=== PATIENT | female | born 1950 | race Caucasian/White ===

== ENCOUNTER 2017-01-10 08:41 | Day surgery (SDC) | payer OTHER ==
[~2017-01-10] VITALS: Ht 157.5 cm; Wt 59.1 kg
[2017-01-10] VITALS (8 sets, daily range): BP systolic 132–183; BP diastolic 62–87; PULSE 68–86; RESP 16–20; TEMP 98.4; O2SAT 92–95
[~2017-01-10 08:41] MED LIST: FLUN1AER INH; GLIP1TAB49 PO; METF500T PO; PANT20TA2 PO; VITA100036 PO
[2017-01-10] MEDS ORDERED: SODIUM CHLOR 0.9% 1000 ML INJ 1,000 ML IV SCH (09:15)
[2017-01-10] MEDS ORDERED: GLIP1TAB51 PO (09:19)
[2017-01-10] MEDS ORDERED: LANTUS2P SQ (09:19)
[2017-01-10 09:51] LABS: AUTOMATED NEUTROPHIL # 8.9 TH/MM3 (1.8-7.7); BASOPHIL # 0.1 TH/MM3 (0-0.2); BASOPHIL % 0.5 % (0.0-2.0); EOSINOPHIL # 0.3 TH/MM3 (0-0.4); EOSINOPHIL % 2.8 % (0.0-4.0); HEMATOCRIT 39.2 % (35.0-46.0); HEMO FLAGS DIFF FINAL; LYMPH % 14.3 % (9.0-44.0); LYMPHOCYTE # 1.7 TH/MM3 (1.0-4.8); MEAN CORPUSCULAR HEMOGLOBIN 25.9 PG (27.0-34.0); MEAN CORPUSCULAR HGB CONC 32.8 % (32.0-36.0); MONO % 7.6 % (0.0-8.0); NEUT % 74.8 % (16.0-70.0); PLATELET COUNT 286 TH/MM3 (150-450); RED BLOOD COUNT 4.96 MIL/MM3 (4.00-5.30); RED CELL DISTRIBUTION WIDTH 14.1 % (11.6-17.2); WHITE BLOOD COUNT 11.9 TH/MM3 (4.0-11.0)
[2017-01-10 09:59] LABS: APTT (PATIENT) 26.5 SEC (24.3-30.1); PROTHROMBIN TIME - PATIENT 10.7 SEC (9.8-11.6)
[2017-01-10] MEDS ORDERED: LIDOCAINE HCL 1% 20 ML VIAL ONE (11:39)
[2017-01-10] MEDS ORDERED: MIDAZOLAM HCL 2 MG/2 ML VIAL ONE ×2 (12:00→12:12)
[2017-01-10] MEDS ORDERED: oxyCODONE/ACETAMINOPHEN 5 MG/325 MG TAB PO PRN ×3 (12:45→13:45)
--- NOTE | 2017-01-10 12:46 | PD.RAD ---
Post CT Procedure Prog Note Pre Procedure Diagnosis: (1) Renal carcinoma Post Procedure Diagnosis: (1) Renal carcinoma Procedure Date: Jan 10, 2017 Supervising Radiologist: Bennie Gutiérrez Estimated blood loss: none Anesthesia: Local, Conscious Sedation Plan of Activity Patient to Unit: [facility] Patient Condition: Good See PACS Report for procedural detail/treatment Biopsy Imaging Guidance: CT Side: Left Biopsy Procedure: Lung Specimen: Core Biopsy Bennie Gutiérrez MD Jan 10, 2017 12:46
--- NOTE | 2017-01-10 13:21 | RADRPT ---
EXAM DATE/TIME: 01/10/2017 12:05 CORRECTION Corrected on: January 11, 2017; CORRECTED HEADER TO LEFT LUNG FROM RIGHT LUNG [facility] COMPARISON: No previous studies available for comparison. INDICATIONS : Lung lesions SEDATION TIME: 25 minutes BIOPSY SITE: Left Lung anterior sulcus MEDICATION(S): 1.) 3 mg midazolam (Versed) IV 2.) 150 mcg fentanyl (Sublimaze) IV DEVICE(S): 1.) 16 gauge Temno core biopsy needle MEDICAL HISTORY : Renal cell carcinoma. SURGICAL HISTORY : Appendectomy. Nephrectomy, left. Cholecystectomy. HYSTERECTOMY ENCOUNTER: Initial ACUITY: 1 day PAIN SCORE: 0/10 LOCATION: Left lUNG A total of one core specimen(s) were obtained and sent to the laboratory for pathologic evaluation. PROCEDURE: 1. CT guided lung LEFT biopsy. Prior to the procedure informed consent was obtained. Any appropriate prior imaging studies were rev iewed. Using automated exposure control and adjustment of the mA and/or kV according to patient size, radiation dose was kept as low as reasonably achievable to obtain optimal diagnostic quality images. DICOM format image data is available electronically for review and comparison. The site was prepped in a sterile fashion. Full sterile technique was used, including cap, mask, radha rile gloves and gown and a large sterile sheet. Hand hygiene and 2% chlorhexidine and/or betadine/al cohol prep was utilized per protocol for cutaneous antisepsis. The skin and subcutaneous tissues wer e infiltrated with local anesthetic solution. With CT guidance the previously identified target was localized. Biopsy was performed using the presc ribed needle as above. Adequate hemostasis was obtained with compression at the puncture site. Follow-up CT scan reveals no pneumothorax. Conscious sedation was performed with the prescribed dosages and duration as above in the presence of an independent trained radiology nurse to assist in the monitoring of the patient. EKG and oximetry remained stable throughout the procedure. The patient tolerated the procedure well and there were no complications. The patient was sent to Radiology Outpatient Unit in stable condition. CONCLUSION: Uncomplicated CT guided biopsy. Bennie Gutiérrez MD on January 10, 2017 at 13:18 Board Certified Radiologist. This report was verified electronically.
--- NOTE | 2017-01-10 13:21 | RADRPT ---
EXAM DATE/TIME: 01/10/2017 13:05 [facility] COMPARISON: No previous studies available for comparison. INDICATIONS : Post right lung biopsy. MEDICAL HISTORY : Diabetes mellitus type II. Renal cell carcinoma. SURGICAL HISTORY : Appendectomy. Cholecystectomy. Hysterectomy. left nephrectomy ENCOUNTER: Subsequent ACUITY: 1 day PAIN SCORE: 0/10 LOCATION: Bilateral chest FINDINGS: Multiple bilateral pulmonary parenchymal nodules identified. No evidence of pneumothorax or hemothora x following biopsy. Cardiac contours are grossly satisfactory. CONCLUSION: No complication of biopsy Bennie Gutiérrez MD on January 10, 2017 at 13:20 Board Certified Radiologist. This report was verified electronically.
[2017-01-10] MEDS ORDERED: HYDROmorphone HCL PF 1 MG/ML VIAL IVS PRN ×2 (13:45)
[2017-01-10] MEDS ORDERED: oxyCODONE/ACETAMINOPHEN 5 MG/325 MG TAB PO ONE (14:15)
== END 2017-01-10 16:40 | disposition home or self-care (01) ==
LOC: HRAD 08:41 → HRIP 08:42 → HRAD 16:40
PROVIDERS: ATTEND Internal Medicine Hematology & Oncology
DX: C34.92 Malignant neoplasm of unspecified part of left bronchus or lung (principal); R91.8 Other nonspecific abnormal finding of lung field; E11.9 Type 2 diabetes mellitus without complications; E78.00 Pure hypercholesterolemia, unspecified; Z85.528 Personal history of other malignant neoplasm of kidney; Z79.4 Long term (current) use of insulin; Z79.899 Other long term (current) drug therapy
CPT/HCPCS: 32405; 71010; 85025; 85610; 85730; 88305; J2250; J3010; 77012

== ENCOUNTER 2017-09-17 06:01 | Day surgery (SDC) | payer OTHER ==
[~2017-09-17] VITALS: Ht 157.5 cm; Wt 68.0 kg
[~2017-09-17 06:01] MED LIST changes: +CHOL10008 PO; -GLIP1TAB49 PO; +GLIP1TAB51 PO; +LANTUS2P SQ; -METF500T PO; -VITA100036 PO
[2017-09-17 06:49] VITALS: BP 184/81; PULSE 79; RESP 18; TEMP 97.8; O2SAT 93
[2017-09-17] MEDS ORDERED: NOVOLOGSS (06:52)
[2017-09-17 07:29] LABS: AUTOMATED NEUTROPHIL # 8.4 TH/MM3 (1.8-7.7); BASOPHIL # 0.1 TH/MM3 (0-0.2); BASOPHIL % 0.5 % (0.0-2.0); EOSINOPHIL # 0.1 TH/MM3 (0-0.4); EOSINOPHIL % 0.6 % (0.0-4.0); HEMATOCRIT 37.4 % (35.0-46.0); HEMOGLOBIN 12.5 GM/DL (11.6-15.3); LYMPH % 12.2 % (9.0-44.0); LYMPHOCYTE # 1.3 TH/MM3 (1.0-4.8); MEAN CELL VOLUME 79.6 FL (80.0-100.0); MEAN CORPUSCULAR HEMOGLOBIN 26.7 PG (27.0-34.0); MEAN CORPUSCULAR HGB CONC 33.6 % (32.0-36.0); MEAN PLATELET VOLUME 7.5 FL (7.0-11.0); MONO % 7.7 % (0.0-8.0); MONOCYTE # 0.8 TH/MM3 (0-0.9); PLATELET COUNT 276 TH/MM3 (150-450); WHITE BLOOD COUNT 10.6 TH/MM3 (4.0-11.0)
[2017-09-17 07:30] LABS: PROTHROMBIN TIME - PATIENT 10.5 SEC (9.8-11.6)
[2017-09-17] MEDS ORDERED: LIDOCAINE 1%/EPINEPHrine 1:100,000 SOLN 20 ML VIAL ONE (07:37)
[2017-09-17] MEDS ORDERED: MIDAZOLAM HCL 2 MG/2 ML VIAL ONE ×2 (07:49→08:14)
[2017-09-17] MEDS ORDERED: ceFAZolin 2 GM PREMIX 50 ML - implanted port/tunneled catheter insertion IV SCH (08:00)
[2017-09-17] MEDS ORDERED: POVIDONE IODINE 5% (ANTISEPSIS KIT) 4 APPLICATIONS EACH NARE SCH (08:00)
[2017-09-17] MEDS ORDERED: VANCOMYCIN 1000 MG/NS 250 ML - implanted port/tunneled catheter IV SCH ×2 (08:00)
[2017-09-17] MEDS ORDERED: CHLORHEXIDINE GLUCONATE 2 % 1 PACK (2 CLOTHS) TOPICAL SCH (08:00)
[2017-09-17] MEDS ORDERED: SODIUM CHLORIDE 0.9% 1000 ML IV SCH (08:00)
--- NOTE | 2017-09-17 08:50 | PD.RAD ---
Post Procedure Progress Note Pre Procedure Diagnosis: (1) Renal carcinoma Post Procedure Diagnosis: (1) Renal carcinoma Procedure Date: Sep 17, 2017 Supervising Radiologist: Jayesh Hansen JR Proceduralist/Assist: Silas Ayala, RT(R), Elisabeth Calles RT(R) Anesthesia: Conscious Sedation Plan of Activity Patient to Unit: [facility] Patient Condition: Good See PACS Report for procedural detail/treatment Central Venous Access Device Procedure 1 Right Internal Jugular Infusaport Placement single lumen Czech: 8 Findings: Port in good position and functions well. OK to use. Plan F/U with IR or a physician in 10-14 days for a site check. Jr. Tyrone,Jayesh Zabala MD Sep 17, 2017 08:50
[2017-09-17 08:55] VITALS: BP 154/76; PULSE 80; RESP 20; TEMP 97.6; O2SAT 95
[2017-09-17] MEDS ORDERED: SODIUM CHLORIDE 0.9% FLUSH 10 ML FLUSH IVF PRN (09:00)
[2017-09-17 09:10] VITALS: BP 152/74; PULSE 76; RESP 20; O2SAT 96
[2017-09-17 09:40] VITALS: BP 146/73; PULSE 72; RESP 20; O2SAT 97
--- NOTE | 2017-09-17 09:55 | RADRPT ---
EXAM DATE: 09/17/2017 9:05 AM EDT AGE/SEX: 67 years / Female INDICATIONS: Patient presents with metastatic lung cancer in need of port placement for chemotherapy treatment. CLINICAL DATA: This is the patient's initial encounter. Patient reports that signs and symptoms have been present for > 1 year and indicates a pain score of 1/10. MEDICAL/SURGICAL HISTORY: . DM, Osteomyelitis, High cholesterol . Left nephrectomyPartial hyst erectomy COMPARISON: No prior [place] exams available for comparison. FLUORO TIME (min): 0.41 IMAGE SERIES: 3 SEDATION TIME (min): 25 MEDICATION(S): 3.5 mg midazolam (Versed) IV 175 mcg fentanyl (Sublimaze) IV Vancomycin within 2 hrs of procedure, Ancef (or alternative) within 1 hr of procedure. DEVICE(S): Right 8fr Xcela plus port . . PROCEDURE : 1. Continuous pulse oximetry and EKG monitoring. 2. Intravenous conscious sedation. 3. Ultrasound guidance for venous access. 4. Fluoroscopic guided implantable central venous port placement. The patient was placed supine. The neck was prepped in sterile fashion. Full sterile technique was u sed, including cap, mask, sterile gloves and gown, and a large sterile sheet. Hand hygiene and 2% ch lorhexidine Betadine was utilized per protocol for cutaneous antisepsis with appropriate dry time for site. Sterile gel and sterile probe cover were utilized for ultrasound guidance. The skin and sub cutaneous tissues were infiltrated with local anesthetic solution. Under direct ultrasound guidance, central venous access was accomplished in the targeted vessel. The ultrasound images depicting access guidance were stored and saved to PACS for permanent record. A s ubcutaneous pocket was created using blunt dissection. The port was introduced to the pocket. The c atheter tubing was fed through a subcutaneous tunnel to the venotomy site. The catheter tubing was c ut to a suitable length and then was introduced through a valved Peel-Away sheath and positioned with catheter tubing tip at the cavo-atrial junction level. The pocket incision was closed with subcutic ular Vicryl suture. Steri-Strips were applied. The port was flushed and locked with heparin solutio n per protocol. Sterile dressing was applied to the site. The patient tolerated the procedure well. Conscious sedation was performed with the prescribed dosages and duration as above in the presence of an independent trained radiology nurse to assist in the monitoring of the patient. EKG and oximetry remained stable throughout the procedure. The patient tolerated the procedure well and there were no complications. The patient was sent to post anesthesia recovery in stable condition. CONCLUSION: 1. Uncomplicated ultrasound and fluoroscopic guided implanted central venous port catheter placement as described in detail above. An 8 [place] Power port was placed. Electronically signed by: Jayesh Hansen MD 09/17/2017 9:53 AM EDT
[2017-09-17 10:10] VITALS: BP 153/75; PULSE 72; RESP 20; O2SAT 97
== END 2017-09-17 10:40 | disposition home or self-care (01) ==
LOC: HROP 06:01 → HRIP 06:17 → HROP 10:40
PROVIDERS: ATTEND Internal Medicine Hematology & Oncology
DX: C64.9 Malignant neoplasm of unspecified kidney, except renal pelvis (principal); C78.02 Secondary malignant neoplasm of left lung; C78.01 Secondary malignant neoplasm of right lung; I10 Essential (primary) hypertension; M86.9 Osteomyelitis, unspecified; E78.00 Pure hypercholesterolemia, unspecified; M81.0 Age-related osteoporosis without current pathological fracture; E11.9 Type 2 diabetes mellitus without complications; Z01.818 Encounter for other preprocedural examination
CPT/HCPCS: 36561; 76937; 77001; 85025; 85610; 85730; 99152; 99153; C1788; J0690; J1642; J2250; J3010; J3370; J7030; J7050